=== PATIENT | male | born 1980 ===

== ENCOUNTER 2017-08-05 20:00 | Emergency (ER) | payer SELFPAY ==
[2017-08-05 20:34] VITALS: BP 128/78; PULSE 61; RESP 16; TEMP 97.4; O2SAT 100
--- NOTE | 2017-08-05 21:29 | ED PDOC ---
HPI: General Adult Time Seen by Provider: 08/05/17 20:38 Chief Complaint (Nursing): Back Pain Chief Complaint (Provider): Right Back Pain History Per: Patient History/Exam Limitations: no limitations Onset/Duration Of Symptoms: Other (started last week and has worsen) Current Symptoms Are (Timing): Still Present Additional Complaint(s): Enmanuel is a 37 year old male with a past medical history of back problems, who presents to the ED complaining of right lower back pain. Patient reports that during his prior ED visits, he was given pain medications with relief. Patient denies taking any medications prior to arrival. PMD: Provider TBD Past Medical History Reviewed: Historical Data, Nursing Documentation, Vital Signs Vital Signs: Last Vital Signs Temp 97.4 F L 08/05/17 20:31 Pulse 61 08/05/17 20:31 Resp 16 08/05/17 20:31 BP 128/78 08/05/17 20:31 Pulse Ox 100 08/05/17 21:45 - Medical History PMH: Back Problems (lower back pain) - Surgical History Surgical History: No Surg Hx - Family History Family History: States: No Known Family Hx - Home Medications Home Medications: Ambulatory Orders Medication Instructions Recorded Cyclobenzaprine [Cyclobenzaprine 10 mg PO Q8H #20 tab 08/05/17 HCl] Naproxen [Naprosyn] 500 mg PO BID #20 tablet 08/05/17 - Allergies Allergies/Adverse Reactions: Allergies Allergy/AdvReac Type Severity Reaction Status Date / Time No Known Allergies Allergy Verified 08/05/17 20:31 Review of Systems Musculoskeletal: Positive for: Back Pain (Lower back pain) Physical Exam - Physical Exam Appears: Positive for: Non-toxic, No Acute Distress Head Exam: Positive for: ATRAUMATIC, NORMAL INSPECTION, NORMOCEPHALIC Skin: Positive for: Normal Color Eye Exam: Positive for: Normal appearance Neck: Positive for: Normal Respiratory: Negative for: Respiratory Distress Back: Positive for: Other (Right SI Joint Tenderness) Neurologic/Psych: Positive for: Alert, Oriented - ECG O2 Sat by Pulse Oximetry: 100 (RA) Pulse Ox Interpretation: Normal Medical Decision Making Medical Decision Making: Time: 21:27 Impression: Right SI Joint Tenderness Plan: - Flexeril 10 mg PO - Motrin Tab 600 mg PO Upon provider evaluation patient is medically stable, and requires no further treatment in the ED at this time. Patient will be discharged with Rx for Flexeril 10 mg PO and Motrin Tab 600 mg PO. Counseling was provided and all questions were answered regarding diagnosis and need for follow up with PCP. There is agreement to discharge plan. Return if symptoms persist or worsen. Scribe Attestation: Documented by Joey Moyer, acting as a scribe for Amy Blackmon PA-C Provider Scribe Attestation: All medical record entries made by the Scribe were at my direction and personally dictated by me. I have reviewed the chart and agree that the record accurately reflects my personal performance of the history, physical exam, medical decision making, and the department course for this patient. I have also personally directed, reviewed, and agree with the discharge instructions and disposition. Disposition - Clinical Impression Clinical Impression: SI (sacroiliac) joint dysfunction - Patient ED Disposition Is Patient to be Admitted: No Counseled Patient/Family Regarding: Diagnosis, Need For Followup, Rx Given - Disposition Disposition: Routine/Home Disposition Time: 22:16 Condition: GOOD Prescriptions: Cyclobenzaprine [Cyclobenzaprine HCl] 10 mg PO Q8H #20 tab Naproxen [Naprosyn] 500 mg PO BID #20 tablet Instructions: Acute Low Back Pain (ED) Forms: [employer] (Latvian) Print Language: JAPANESE
== END 2017-08-05 22:49 | disposition home or self-care (01) ==
LOC: H.ER 20:00
DX: M53.3 Sacrococcygeal disorders, not elsewhere classified (principal)

== ENCOUNTER 2019-02-06 14:30 | Emergency (ER) | payer OTHER, SELFPAY ==
[2019-02-06 14:39] VITALS: BP 118/67; PULSE 61; RESP 16; TEMP 98.3; O2SAT 97
--- NOTE | 2019-02-06 15:23 | ED PDOC ---
HPI: Back Time Seen by Provider: 02/06/19 15:00 Chief Complaint (Nursing): Back Pain Chief Complaint (Provider): Back Pain History Per: Patient History/Exam Limitations: no limitations Onset/Duration Of Symptoms: Days (x2) Current Symptoms Are (Timing): Still Present Additional Complaint(s): 38 y/o male, with no past medical history, presents to the ER complaining of lower back pain since yesterday at 09:00. Patient reports he was at work when he went to lift a bag of cement. He picked it up and swung it over his shoulder and felt the pain instantly. He reports taking Naproxen at home with no improvement. He states pain radiates bilaterally to the pelvic area but is able to control voiding and bowel habits. Denies numbness. Of note, patient has a history of lower back pain and injury from 10 years ago. PMD: none Past Medical History Reviewed: Historical Data, Nursing Documentation, Vital Signs Vital Signs: Last Vital Signs Temp 98.3 F 02/06/19 14:38 Pulse 61 02/06/19 14:38 Resp 16 02/06/19 14:38 BP 118/67 02/06/19 14:38 Pulse Ox 97 02/06/19 14:38 Primary Care Provider: FAMILY PROVIDER,NO - Medical History PMH: Back Problems (lower back pain) - Surgical History Surgical History: No Surg Hx - Family History Family History: States: Unknown Family Hx - Immunization History Hx Tetanus Toxoid Vaccination: No Hx Influenza Vaccination: No Hx Pneumococcal Vaccination: No - Home Medications Home Medications: Ambulatory Orders Medication Instructions Recorded Cyclobenzaprine [Cyclobenzaprine 10 mg PO Q8H #20 tab 08/05/17 HCl] Naproxen [Naprosyn] 500 mg PO BID #20 tablet 08/05/17 Cyclobenzaprine [Cyclobenzaprine 10 mg PO Q8H PRN #15 tab 02/06/19 HCl] Naproxen [Naprosyn Tab] 500 mg PO Q12H PRN #30 tab 02/06/19 - Allergies Allergies/Adverse Reactions: Allergies Allergy/AdvReac Type Severity Reaction Status Date / Time No Known Allergies Allergy Verified 08/05/17 20:31 Review of Systems ROS Statement: Except As Marked, All Systems Reviewed And Found Negative Musculoskeletal: Positive for: Back Pain (lower back pain radiating to pelvic area) Neurological: Negative for: Numbness Physical Exam - Reviewed Nursing Documentation Reviewed: Yes Vital Signs Reviewed: Yes - Physical Exam Appears: Positive for: No Acute Distress Head Exam: Positive for: ATRAUMATIC, NORMOCEPHALIC Skin: Positive for: Normal Color, Warm, Dry Eye Exam: Positive for: Normal appearance Neck: Positive for: Normal, Painless ROM Cardiovascular/Chest: Positive for: Regular Rate, Rhythm Respiratory: Positive for: Normal Breath Sounds. Negative for: Wheezing, Respiratory Distress Back: Positive for: Other (point tenderness to the lower spine; pain is reproduced with bending, getting up from chair, and palpation) Neurological/Psych: Positive for: Awake, Alert, Normal Tone - ECG O2 Sat by Pulse Oximetry: 97 (RA) Pulse Ox Interpretation: Normal Medical Decision Making Medical Decision Making: Initial Impression: Lower back pain Initial Plan: --Toradol 60mg IM --Flexeril 10mg PO 16:30 Patient is ambulating with much better ease. Pain has improved but occurs mostly now with movement. Nonpharmacological and pharmacological education therapies for back pain given to patient. Prescription for Naproxen and Flexeril given. With Flexeril, patient advised to not drive or operate heavy equipment due to side effect of drowsiness. Return precautions given. Patient verbally understands and agrees with plan. Scribe Attestation: Documented by Claudio Mcdaniels acting as a scribe for Kourtney Ferguson NP. Provider Scribe Attestation: All medical record entries made by the Scribe were at my direction and personally dictated by me. I have reviewed the chart and agree that the record accurately reflects my personal performance of the history, physical exam, medical decision making, and the department course for this patient. I have also personally directed, reviewed, and agree with the discharge instructions and disposition. Disposition - Clinical Impression Clinical Impression: Back pain - Patient ED Disposition Is Patient to be Admitted: No - Disposition Referrals: FAMILY PROVIDER,NO [Primary Care Provider] - [facility] [place] [Outside] Disposition Time: 16:30 Condition: IMPROVED Prescriptions: Cyclobenzaprine [Cyclobenzaprine HCl] 10 mg PO Q8H PRN #15 tab PRN Reason: Pain, Moderate (4-7) Naproxen [Naprosyn Tab] 500 mg PO Q12H PRN #30 tab PRN Reason: Pain, Moderate (4-7) Instructions: Low Back Pain in Adults, Back Exercises Forms: [employer] (Kyrgyz), [facility] ED School/Work Excuse Print Language: GREENLANDIC - POA Present On Arrival: None
== END 2019-02-06 17:06 | disposition home or self-care (01) ==
LOC: H.ER 14:30 → SUPCPDRO 14:30 → H.ER 17:06
DX: M54.5 Low back pain (principal)
CPT/HCPCS: 96372; 99283; J1885